=== PATIENT | male | born 1960 | race Two or more races ===

== ENCOUNTER 2022-11-23 00:09 | Inpatient (IN) | payer BC ==
[~2022-11-23] VITALS: Ht 172.7 cm; Wt 113.4 kg
--- NOTE | 2022-11-23 00:02 | NUR ---
Received patient from [facility] by florentino at this time. AAOx4. No signs of distress or c/o pain noted at this time. Is on 2L NC. Saturation 96-97%. Is SR on tele monitor. Right AC IV site is intact and patent. Admission process completed. Is on droplet isolation. Safety and comfort measures endorsed.
[2022-11-23] MEDS: BLOOD SUGAR DIAGNOSTIC 1 EACH STRIP VI SCH ×5 (01:00→20:46)
[2022-11-23] MEDS ORDERED: DEXTROSE 50% 50 ML DISP.SYRIN IV PRN (01:00)
[2022-11-23 01:20] VITALS: BP 124/83
[2022-11-23] MEDS ORDERED: ONDANSETRON 4 MG/2 ML VIAL IV PRN (01:45)
[2022-11-23] MEDS ORDERED: AZITHROMYCIN 500MG/ D5W 250ML IVPB **ER PYXIS ONLY IV ONE (03:28)
[2022-11-23] MEDS ORDERED: AZITHROMYCIN IV 500 MG in IV DEXTROSE 5% 250 ML IV SCH (03:44)
[2022-11-23] MEDS ORDERED: CEFTRIAXONE 1 G VIAL IM SCH ×2 (03:46→21:00)
--- NOTE | 2022-11-23 03:46 | NUR ---
Rocephin dose for this time was not administered because it was already administered adequately before patient was admitted to unit. Dr. Reece was contacted and is aware. Charge nurse, JULIANN Leon is also aware.
[2022-11-23] MEDS: INSULIN REGULAR, HUMAN 300 UNITS/3 ML VIAL SQ PRN ×2 (03:50→20:47)
[2022-11-23] MEDS: ACETAMINOPHEN 325 MG TABLET PO PRN ×3 (03:57→20:38)
[2022-11-23 04:20] VITALS: BP 156/83
[2022-11-23] MEDS: IV NS 1000 ML 1,000 ML IV PRN (05:29)
[2022-11-23 07:49] LABS: HEMATOCRIT 38.8 % (36.7-47.1); MEAN CORPUSCULAR HEMOGLOBIN 29.9 uug (23.8-33.4); MEAN CORPUSCULAR VOLUME 90.1 fL (73.0-96.2); PLATELET COUNT (AUTO) 176 K/uL (152-348)
[2022-11-23] MEDS: INSULIN REGULAR, HUMAN 300 UNIT/3 ML VIAL SQ PRN ×3 (08:19→16:32)
[2022-11-23 08:20] LABS: CREATININE 0.9 mg/dL (0.6-1.3); MAGNESIUM 2.1 mg/dL (1.8-2.4); PHOSPHOROUS 2.5 mg/dL (2.5-4.9); POTASSIUM 3.8 mmol/L (3.5-5.1)
[2022-11-23] MEDS: DOCUSATE SODIUM 100 MG CAPSULE PO SCH ×2 (08:28→20:38)
[2022-11-23] MEDS ORDERED: OSELTAMIVIR PHOSPHATE 75 MG CAPSULE PO ONE (09:00)
[2022-11-23 09:33] LABS: *BLOOD, URINE 1+ (NEGATIVE); *CLARITY,URINE CLEAR (CLEAR); *COLOR,URINE YELLOW (YELLOW); *KETONES,URINE 1+ (NEGATIVE); LEUKOCYTE ESTERASE ,URINE NEGATIVE (NEGATIVE); NITRITE, URINE NEGATIVE (NEGATIVE); UGLUCOSE NEGATIVE (NEGATIVE)
[2022-11-23 09:41] LABS: *BILIRUBIN,URIN 1+ (NEGATIVE)
[2022-11-23 11:44] VITALS: BP 140/84
[2022-11-23] MEDS: CEFTRIAXONE 1 G in IV DEXTROSE 5% 50 ML IV SCH (11:45)
--- NOTE | 2022-11-23 13:00 | NUR ---
Pt AAOX4. Temp. 100.5 Tylenol 650 mg given. No s/s of SOB or any resp distress. Rocephin 1g in D5 given. Pt. tolerated well. No s/s of adverse reaction. Will continue to monitor.
[2022-11-23 13:27] LABS: WBC,URINE NONE SEEN /HPF (0-3)
[2022-11-23 13:28] LABS: BACTERIA,URINE FEW /HPF (NONE SEEN); SQUAMOUS EPITHELIAL CELL,UR FEW /HPF (NONE SEEN)
[2022-11-23] MEDS ORDERED: HYDR-501 PO (15:09)
--- NOTE | 2022-11-23 15:10 | NUR ---
Spoke with pt. with home meds. He cannot remember home meds, he instead gave the name of his pharmacy. Called [facility] pharmacy and spoke to Laura and she stated that pt. only took Hydroxyzine according to their record. Medication entered in the [facility] and Dr. Garcia was here and aware.
[2022-11-23] MEDS: HYDROCODONE/APAP 5-325MG TABLET PO PRN (16:40)
[2022-11-23 16:47] VITALS: BP 147/89
--- NOTE | 2022-11-23 18:26 | NUR ---
Pt. c/o of pain 8/10 right lower back. Wynona 3/325 mg given. Pt. tolerated well. Dr. Garcia saw the pt. and ordered chest x-ray, us guided thoracentesis and pulmonary consult. Pt. started Tamiflu 150 mg and tolerated well. Will continue to observe droplets precaution.
--- NOTE | 2022-11-23 19:30 | NUR ---
Received patient lying in bed. AAOx4. Mainly Portuguese speaking. In no acute distress. Noted with frequent cough. Isolation precaution observed. Sinus tachy on tele with HR of 105/min. IV site on right AC intact and patent. IVF infusing. Continue to monitor.
[2022-11-23 20:00] VITALS: BP 126/78
--- NOTE | 2022-11-23 20:00 | NUR ---
Patient with temp of 101.3 orally, cooling measure provided and will provide Tylenol 650mg PO. O2 at 2LPM via NC in place. O2 sat at 95%. Frequent coughing and productive. Informed RT and will give breathing treatment.
--- NOTE | 2022-11-23 20:25 | NUR ---
Telephone call from Dr Moralse and gave telephone order to start patient on Metoprolol 25mg PO BID and Lisinorpil 10 mg daily in AM. Give 1 dose of Lisinopril 10mg PO tonight. Order read back and verified.
[2022-11-23] MEDS: IPRATROPIUM BROMIDE 0.5 MG/2.5 ML NEBU NEB PRN (20:27)
[2022-11-23] MEDS: ALBUTEROL SULFATE 2.5 MG/3 ML NEBU NEB PRN (20:27)
[2022-11-23] MEDS: MELATONIN 3 MG TABLET PO SCH (20:39)
[2022-11-23] MEDS: OSELTAMIVIR PHOSPHATE 75 MG CAPSULE PO SCH (20:52)
[2022-11-23] MEDS ORDERED: CEFTRIAXONE 1 G in IV DEXTROSE 5% 50 ML IV SCH (21:00)
[2022-11-23] MEDS ORDERED: LISINOPRIL 10 MG TABLET PO ONE (21:00)
[2022-11-24 00:23] VITALS: BP 126/59
[2022-11-24] MEDS: HYDROCODONE/APAP 5-325MG TABLET PO PRN ×4 (00:24→22:07)
[2022-11-24] MEDS: AZITHROMYCIN IV 500 MG in IV DEXTROSE 5% 250 ML IV SCH (03:57)
[2022-11-24] MEDS: IV NS 1000 ML 1,000 ML IV PRN (03:57)
[2022-11-24 04:00] VITALS: BP 132/79
[2022-11-24] MEDS: BLOOD SUGAR DIAGNOSTIC 1 EACH STRIP VI SCH ×4 (06:41→21:00)
--- NOTE | 2022-11-24 06:53 | NUR ---
Patient slept intermittently throughout the night. No signs of distress noted at this time. Is on 2L NC. Is SR on tele monitor, HR 96. Addressed pain. No fever was noted through rest of shift. Antibiotics adequately infused. No signs of diabetic crisis. Is aware of US guided thoracentesis procedure for today.
[2022-11-24] MEDS: INSULIN REGULAR, HUMAN 300 UNIT/3 ML VIAL SQ PRN ×3 (08:20→16:28)
[2022-11-24] MEDS: DOCUSATE SODIUM 100 MG CAPSULE PO SCH ×2 (08:21→21:00)
[2022-11-24] MEDS: OSELTAMIVIR PHOSPHATE 75 MG CAPSULE PO SCH ×2 (08:21→21:00)
[2022-11-24] MEDS: LISINOPRIL 10 MG TABLET PO SCH (08:26)
[2022-11-24] MEDS: METOPROLOL TARTRATE 25 MG TABLET PO SCH ×2 (08:26→16:35)
--- NOTE | 2022-11-24 10:50 | NUR ---
PATIENT SEEN AND EXAMINED BY DR QUISPE WITH NEW ORDERS AND NOTED
[2022-11-24 12:00] VITALS: BP 143/68
[2022-11-24] MEDS: CEFTRIAXONE 1 G in IV DEXTROSE 5% 50 ML IV SCH (12:39)
--- NOTE | 2022-11-24 15:00 | NUR ---
[employer] HERE FOR THE THORACENTESIS AND STATED THAT THEY WILL NOT BE ABLE TO DO THE THORACENTESIS STATED THAT PATIENT WILL NEED CT GUIDED DR RODRÍGUEZ HERE AND AWARE SO THE PLAN IS THAT THE THORACENTESIS WILL BE DONE TOMORROW WITH THE CT GUIDED TECHNIQUE.
[2022-11-24 15:16] LABS: HEMATOCRIT 38.2 % (36.7-47.1); MEAN CORPUSCULAR HEMOGLOBIN 29.6 uug (23.8-33.4); MEAN CORPUSCULAR VOLUME 89.7 fL (73.0-96.2); PLATELET COUNT (AUTO) 189 K/uL (152-348)
[2022-11-24 15:25] LABS: POTASSIUM 3.9 mmol/L (3.5-5.1)
[2022-11-24 15:29] LABS: MAGNESIUM 2.3 mg/dL (1.8-2.4); PHOSPHOROUS 2.2 mg/dL (2.5-4.9)
--- NOTE | 2022-11-24 16:00 | NUR ---
WBC IS 31.6 DR BRIDGES NOTIFIED WITH NO NEW ORDERS AT THIS TIME.
[2022-11-24 16:40] VITALS: BP 172/78
--- NOTE | 2022-11-24 16:40 | NUR ---
PATIENT C/O OF GENERALISED PAIN ESPECIALLY HIS BACK MEDICATED WITH NORCO ORDERED.
--- NOTE | 2022-11-24 17:40 | NUR ---
BLOOD PRESSURE IS ELEVATED AT 172/83 DR EASTMAN HERE STATED WILL ORDER PRN DOSE.
[2022-11-24] MEDS ORDERED: ENALAPRILAT DIHYDRATE 1.25 MG/1 ML VIAL IV PRN (18:00)
[2022-11-24] MEDS ORDERED: hydrALAZINE HCL 20 MG/1 ML VIAL IV PRN ×2 (18:00→18:15)
[2022-11-24] MEDS ORDERED: hydrALAZINE HCL IV 20 MG in IV NORMAL SALINE 50 ML IV PRN (18:00)
[2022-11-24 18:26] VITALS: BP 139/76
--- NOTE | 2022-11-24 18:27 | NUR ---
BLOOD PRESSURE RECHECKED AT THIS TIME AND ITS 139/76 HR91 WILL CONTINUE TO OBSERVE.
[2022-11-24 20:00] VITALS: BP 118/65
[2022-11-24] MEDS: MELATONIN 3 MG TABLET PO SCH (21:00)
[2022-11-24] MEDS: INSULIN REGULAR, HUMAN 300 UNITS/3 ML VIAL SQ PRN (22:23)
[2022-11-24 23:26] LABS: BAND % (MANUAL) 2 % (0-10)
[2022-11-24 23:27] LABS: LYMPHOCYTES % (MANUAL) 5 % (20-40); MONOCYTES % (MANUAL) 3 % (2-10); NEUTROPHILS % (MANUAL) 90 % (42-75)
[2022-11-24] MEDS: ACETAMINOPHEN 325 MG TABLET PO PRN (23:42)
[2022-11-25] VITALS: BP 144/78
[2022-11-25 04:00] VITALS: BP 122/68
[2022-11-25] MEDS: AZITHROMYCIN IV 500 MG in IV DEXTROSE 5% 250 ML IV SCH (04:34)
--- NOTE | 2022-11-25 07:00 | NUR ---
SHIFT NOTE: PT HAD TEMP AT START OF SHIFT GAVE TYLENOL 650MG AND HS BLOOD SUGAR IS 179 GAVE 3 UNITS OF REGULAR. PT AM BLOOD SUGAR 182 WILL ENDORSE TO AM NURSE. PT ASSESSED HAS CONTINUAL COUGH WITH GREEN MUCUS NO SIGNS DISTRESS NOTED AND WHEEZING FROM LUNGS. PT MONITORED Q2H AND ON DROPLET PRECAUTION FOR RSV. WILL CONTINUE TO MONITOR FOR SAFETY AND OTHER NEEDS PATIENT MAY HAVE.
[2022-11-25 07:34] LABS: HEMATOCRIT 37.4 % (36.7-47.1); MEAN CORPUSCULAR VOLUME 89.9 fL (73.0-96.2); PLATELET COUNT (AUTO) 183 K/uL (152-348)
[2022-11-25] MEDS: BLOOD SUGAR DIAGNOSTIC 1 EACH STRIP VI SCH ×4 (07:51→21:08)
[2022-11-25 07:54] LABS: CREATININE 0.8 mg/dL (0.6-1.3); MAGNESIUM 2.2 mg/dL (1.8-2.4); PHOSPHOROUS 2.2 mg/dL (2.5-4.9); POTASSIUM 3.6 mmol/L (3.5-5.1)
[2022-11-25] MEDS: ALBUTEROL SULFATE 2.5 MG/3 ML NEBU NEB PRN ×2 (08:00→20:10)
[2022-11-25] MEDS: IPRATROPIUM BROMIDE 0.5 MG/2.5 ML NEBU NEB PRN ×2 (08:00→20:10)
[2022-11-25] MEDS: INSULIN REGULAR, HUMAN 300 UNIT/3 ML VIAL SQ PRN ×4 (08:20→21:37)
[2022-11-25] MEDS: DOCUSATE SODIUM 100 MG CAPSULE PO SCH ×2 (08:32→21:12)
[2022-11-25] MEDS: OSELTAMIVIR PHOSPHATE 75 MG CAPSULE PO SCH ×2 (08:32→21:13)
[2022-11-25] MEDS: LISINOPRIL 10 MG TABLET PO SCH (08:40)
[2022-11-25] MEDS: METOPROLOL TARTRATE 25 MG TABLET PO SCH ×4 (08:54→17:00)
[2022-11-25] MEDS: HYDROCODONE/APAP 5-325MG TABLET PO PRN (09:06)
[2022-11-25 12:00] VITALS: BP 121/70
[2022-11-25 15:40] VITALS: BP 122/67
[2022-11-25] MEDS ORDERED: NEUTRA PHOS PACKET PO ONE (17:00)
[2022-11-25] MEDS: CEFTRIAXONE 2 G in IV DEXTROSE 5% 100 ML IV SCH (17:34)
--- NOTE | 2022-11-25 19:35 | NUR ---
Received Pt from day shift. Pt is A&Ox4 but only speaks Slovak. Pt is cooperative. Pt on 2L of O2 NC. SR on tele. Safety measures in place. Will continue to monitor.
[2022-11-25 20:00] VITALS: BP 108/55
[2022-11-25] MEDS: MELATONIN 3 MG TABLET PO SCH (21:13)
[2022-11-26] VITALS: BP 135/72
[2022-11-26] MEDS: AZITHROMYCIN IV 500 MG in IV DEXTROSE 5% 250 ML IV SCH (03:57)
[2022-11-26 04:00] VITALS: BP 128/57
--- NOTE | 2022-11-26 06:54 | NUR ---
End of Shift Note: Pt is A&Ox4 and is cooperative. Only speaks [place] Korean. Pt is able to ambulate. SR on tele. 2L O2 via NC. Pt declines fluids except for antibiotics. Safety measures in place. Will continue to monitor.
[2022-11-26] MEDS: BLOOD SUGAR DIAGNOSTIC 1 EACH STRIP VI SCH ×4 (07:01→21:00)
[2022-11-26 07:06] LABS: HEMATOCRIT 36.7 % (36.7-47.1); MEAN CORPUSCULAR HEMOGLOBIN 29.4 uug (23.8-33.4); MEAN CORPUSCULAR VOLUME 90.1 fL (73.0-96.2); PLATELET COUNT (AUTO) 191 K/uL (152-348)
[2022-11-26 07:25] LABS: CREATININE 0.9 mg/dL (0.6-1.3); MAGNESIUM 2.5 mg/dL (1.8-2.4); PHOSPHOROUS 2.7 mg/dL (2.5-4.9); POTASSIUM 3.7 mmol/L (3.5-5.1)
[2022-11-26] MEDS: DOCUSATE SODIUM 100 MG CAPSULE PO SCH ×2 (08:33→21:55)
[2022-11-26] MEDS: OSELTAMIVIR PHOSPHATE 75 MG CAPSULE PO SCH (08:34)
[2022-11-26] MEDS: LISINOPRIL 10 MG TABLET PO SCH (08:40)
[2022-11-26] MEDS: INSULIN REGULAR, HUMAN 300 UNIT/3 ML VIAL SQ PRN ×4 (08:41→22:09)
[2022-11-26] MEDS: METOPROLOL TARTRATE 25 MG TABLET PO SCH ×2 (08:41→17:06)
[2022-11-26 11:57] VITALS: BP 125/69
[2022-11-26 16:35] VITALS: BP 119/55
[2022-11-26] MEDS: CEFTRIAXONE 2 G in IV DEXTROSE 5% 100 ML IV SCH (16:42)
[2022-11-26 20:00] VITALS: BP 140/69
[2022-11-26] MEDS: MELATONIN 3 MG TABLET PO SCH (21:56)
[2022-11-26] MEDS: HYDROCODONE/APAP 5-325MG TABLET PO PRN (22:15)
[2022-11-27] VITALS: BP 140/70
[2022-11-27 04:00] VITALS: BP 140/70
[2022-11-27 06:47] LABS: HEMATOCRIT 39.6 % (36.7-47.1); MEAN CORPUSCULAR HEMOGLOBIN 29.8 uug (23.8-33.4); MEAN CORPUSCULAR VOLUME 88.7 fL (73.0-96.2); PLATELET COUNT (AUTO) 229 K/uL (152-348)
[2022-11-27 07:00] LABS: CREATININE 0.8 mg/dL (0.6-1.3); MAGNESIUM 2.3 mg/dL (1.8-2.4); PHOSPHOROUS 2.9 mg/dL (2.5-4.9); POTASSIUM 3.5 mmol/L (3.5-5.1)
[2022-11-27] MEDS: AZITHROMYCIN IV 500 MG in IV DEXTROSE 5% 250 ML IV SCH (07:04)
[2022-11-27] MEDS: BLOOD SUGAR DIAGNOSTIC 1 EACH STRIP VI SCH ×4 (07:05→20:27)
[2022-11-27] MEDS: METOPROLOL TARTRATE 25 MG TABLET PO SCH ×2 (09:00→16:54)
[2022-11-27] MEDS: LISINOPRIL 10 MG TABLET PO SCH (09:00)
[2022-11-27 09:47] VITALS: BP 154/53
[2022-11-27] MEDS: HYDROCODONE/APAP 5-325MG TABLET PO PRN ×2 (09:51→16:53)
[2022-11-27 11:41] VITALS: BP 119/57
[2022-11-27] MEDS ORDERED: SWABABLE VALVE TRANSFER SET EA MC ONE (11:49)
[2022-11-27] MEDS ORDERED: IOHEXOL 300MG/ML 100 ML INFUS..BTL ONE (11:49)
[2022-11-27] MEDS ORDERED: IV NORMAL SALINE 250 ML IV ONE (11:49)
[2022-11-27] MEDS: DOCUSATE SODIUM 100 MG CAPSULE PO SCH ×2 (14:16→20:27)
[2022-11-27] MEDS: INSULIN REGULAR, HUMAN 300 UNIT/3 ML VIAL SQ PRN ×2 (14:20→17:18)
[2022-11-27 15:52] VITALS: BP 115/61
[2022-11-27] MEDS: CEFTRIAXONE 2 G in IV DEXTROSE 5% 100 ML IV SCH (16:54)
--- NOTE | 2022-11-27 19:30 | NUR ---
Received patient laying in bed. No c/o of pain and signs of distress at this time. On 2L NC, saturation 97%. Chest tube drainage bag clean and intact. Is SR on tele monitor, HR 77. FIDE midline is intact and patent. IV antibiotics running at this time. Safety and comfort measures enforced.
[2022-11-27] MEDS: MELATONIN 3 MG TABLET PO SCH (20:17)
[2022-11-27] MEDS: ACETAMINOPHEN 325 MG TABLET PO PRN (20:20)
[2022-11-27 20:21] VITALS: BP 111/69
--- NOTE | 2022-11-27 20:27 | NUR ---
Patient refused Colace medication. Last BM noted was on the 11/26/22. Patient received IV antibiotics infused adequately. Pain addressed at this time. Other concerns addressed and patient verbally understands.
[2022-11-27] MEDS: INSULIN REGULAR, HUMAN 300 UNITS/3 ML VIAL SQ PRN (20:36)
[2022-11-28 00:13] VITALS: BP 135/66
[2022-11-28] MEDS: HYDROCODONE/APAP 5-325MG TABLET PO PRN ×3 (00:14→23:20)
[2022-11-28 04:54] VITALS: BP 109/63
--- NOTE | 2022-11-28 06:57 | NUR ---
Patient slept comfortably throughout the night. No signs of distress or c/o pain the rest of the night. Is on 2L NC. No signs of fever or diabetic crisis. Is SR on tele monitor, HR 70. Pigtail chest tube is clean and intact. Is dark yellow, brown with a little odor. Safety and comfort measures maintained.
[2022-11-28] MEDS: BLOOD SUGAR DIAGNOSTIC 1 EACH STRIP VI SCH ×4 (07:00→20:30)
[2022-11-28 08:00] VITALS: BP 135/64
[2022-11-28 08:18] LABS: CREATININE 0.7 mg/dL (0.6-1.3); MAGNESIUM 2.3 mg/dL (1.8-2.4); PHOSPHOROUS 3.2 mg/dL (2.5-4.9); POTASSIUM 3.7 mmol/L (3.5-5.1)
[2022-11-28 08:44] LABS: HEMATOCRIT 37.4 % (36.7-47.1); MEAN CORPUSCULAR HEMOGLOBIN 29.7 uug (23.8-33.4); MEAN CORPUSCULAR VOLUME 89.7 fL (73.0-96.2); PLATELET COUNT (AUTO) 228 K/uL (152-348)
[2022-11-28] MEDS: LISINOPRIL 10 MG TABLET PO SCH (08:51)
[2022-11-28] MEDS: ACETAMINOPHEN 325 MG TABLET PO PRN ×2 (08:51→20:15)
[2022-11-28] MEDS: DOCUSATE SODIUM 100 MG CAPSULE PO SCH ×2 (08:52→20:29)
[2022-11-28] MEDS: METOPROLOL TARTRATE 25 MG TABLET PO SCH ×2 (08:52→17:05)
[2022-11-28] MEDS: INSULIN REGULAR, HUMAN 300 UNIT/3 ML VIAL SQ PRN (12:17)
[2022-11-28 12:23] VITALS: BP 127/67
[2022-11-28 16:44] VITALS: BP 107/55
[2022-11-28] MEDS: CEFTRIAXONE 2 G in IV DEXTROSE 5% 100 ML IV SCH (17:04)
[2022-11-28 20:00] VITALS: BP 121/65
[2022-11-28] MEDS: MELATONIN 3 MG TABLET PO SCH (20:15)
[2022-11-28] MEDS: INSULIN REGULAR, HUMAN 300 UNITS/3 ML VIAL SQ PRN (20:45)
--- NOTE | 2022-11-28 23:15 | NUR ---
DC'd FIDE midline d/t it being pulled out. Catheter gauge was intact, patient tolerated removal well. Is in no distress at this time.
[2022-11-29] VITALS: BP 131/64
[2022-11-29 04:00] VITALS: BP 138/59
[2022-11-29] MEDS: ACETAMINOPHEN 325 MG TABLET PO PRN ×2 (04:18→17:49)
--- NOTE | 2022-11-29 05:38 | NUR ---
Patient is SR on tele monitor, HR 68
--- NOTE | 2022-11-29 06:55 | NUR ---
Patient slept intermittently throughout the night. Has a Left FA 22g IV site, hep lock at this time. No c/o of severe pain or signs of distress noted at this time. Chest Xray done at this time. Pigtail chest tube dressing is dry, clean and intact. Is draining adequately. No signs of diabetic crisis noted at this time.
[2022-11-29] MEDS: BLOOD SUGAR DIAGNOSTIC 1 EACH STRIP VI SCH ×4 (07:15→21:42)
[2022-11-29 07:47] LABS: HEMATOCRIT 39.4 % (36.7-47.1); MEAN CORPUSCULAR HEMOGLOBIN 30.3 uug (23.8-33.4); MEAN CORPUSCULAR VOLUME 89.9 fL (73.0-96.2); PLATELET COUNT (AUTO) 236 K/uL (152-348)
[2022-11-29 08:00] LABS: CREATININE 0.8 mg/dL (0.6-1.3); POTASSIUM 3.6 mmol/L (3.5-5.1)
[2022-11-29] MEDS: INSULIN REGULAR, HUMAN 300 UNIT/3 ML VIAL SQ PRN ×5 (09:07→21:50)
[2022-11-29] MEDS: DOCUSATE SODIUM 100 MG CAPSULE PO SCH ×2 (09:08→21:33)
[2022-11-29] MEDS: METOPROLOL TARTRATE 25 MG TABLET PO SCH ×2 (09:11→17:36)
[2022-11-29] MEDS: LISINOPRIL 10 MG TABLET PO SCH (09:14)
[2022-11-29] MEDS: HYDROCODONE/APAP 5-325MG TABLET PO PRN ×2 (09:57→23:50)
[2022-11-29 11:37] VITALS: BP 135/48
[2022-11-29 16:39] VITALS: BP 131/56
[2022-11-29] MEDS: CEFTRIAXONE 2 G in IV DEXTROSE 5% 100 ML IV SCH (18:00)
--- NOTE | 2022-11-29 18:15 | NUR ---
Patient stable in bed. He is alert and oriented x4 and can make eye contact and his needs known. He is calm and relax currently. Patient complained of minor pain, Tylenol given for pain at 1800. Pigtial on chest tube draining well.
[2022-11-29 20:00] VITALS: BP 127/64
[2022-11-29] MEDS: MELATONIN 3 MG TABLET PO SCH (21:37)
--- NOTE | 2022-11-30 00:03 | NUR ---
PT C/O OF SORE THROAT AND COUGH CALL DR GANDHI NO RESPONSE WILL CONTINUE TO MONITOR FOR FALLS AND SAFETY. PT HS BLOOD SUGAR 131 NO COVERAGE REQUIRED AND NO SIGNS OF DIABETIC REACTION NOTED. WILL CONTINUE TO MONITOR FOR SAFETY.
[2022-11-30 04:00] VITALS: BP 135/64
[2022-11-30] MEDS: ACETAMINOPHEN 325 MG TABLET PO PRN (06:09)
[2022-11-30] MEDS: BLOOD SUGAR DIAGNOSTIC 1 EACH STRIP VI SCH ×4 (06:46→21:00)
[2022-11-30 07:37] LABS: HEMATOCRIT 38.5 % (36.7-47.1); MEAN CORPUSCULAR HEMOGLOBIN 29.5 uug (23.8-33.4); MEAN CORPUSCULAR VOLUME 89.9 fL (73.0-96.2); PLATELET COUNT (AUTO) 226 K/uL (152-348)
[2022-11-30 08:07] LABS: CREATININE 0.9 mg/dL (0.6-1.3); MAGNESIUM 2.1 mg/dL (1.8-2.4); POTASSIUM 4.3 mmol/L (3.5-5.1)
[2022-11-30] MEDS: DOCUSATE SODIUM 100 MG CAPSULE PO SCH ×2 (09:37→21:20)
[2022-11-30] MEDS: LISINOPRIL 10 MG TABLET PO SCH (09:38)
[2022-11-30] MEDS: METOPROLOL TARTRATE 25 MG TABLET PO SCH ×2 (09:38→18:10)
[2022-11-30] MEDS: INSULIN REGULAR, HUMAN 300 UNIT/3 ML VIAL SQ PRN ×3 (09:39→18:17)
[2022-11-30 11:09] VITALS: BP 111/35
--- NOTE | 2022-11-30 15:07 | NUR ---
PER BRITTANEY HE WILL DO THE ADMINISTRATION ON TPA THROUGH PIGTAIL JASMYN. PER PHARMACY WE DONT HAVE STOCK OF 10MG TPA, WILL REORDER FOR JASMYN.
--- NOTE | 2022-11-30 16:25 | NUR ---
PT SPIKE A FEVER 101.5 WILL GIVE PRN TYLENOL.
[2022-11-30] MEDS: HYDROCODONE/APAP 5-325MG TABLET PO PRN (16:32)
[2022-11-30 16:51] VITALS: BP 112/43
[2022-11-30 16:53] VITALS: BP 112/43
[2022-11-30] MEDS: IV NS 1000 ML 1,000 ML IV PRN (18:10)
[2022-11-30] MEDS: CEFTRIAXONE 2 G in IV DEXTROSE 5% 100 ML IV SCH (18:10)
[2022-11-30 20:00] VITALS: BP 114/50
[2022-11-30] MEDS: MELATONIN 3 MG TABLET PO SCH (21:22)
[2022-12-01] VITALS: BP 110/52
[2022-12-01] MEDS: INSULIN REGULAR, HUMAN 300 UNITS/3 ML VIAL SQ PRN (00:14)
[2022-12-01 04:00] VITALS: BP 127/59
[2022-12-01 07:39] LABS: HEMATOCRIT 37.6 % (36.7-47.1); MEAN CORPUSCULAR HEMOGLOBIN 30.1 uug (23.8-33.4); PLATELET COUNT (AUTO) 226 K/uL (152-348)
[2022-12-01] MEDS: BLOOD SUGAR DIAGNOSTIC 1 EACH STRIP VI SCH ×4 (07:48→20:49)
[2022-12-01 08:12] LABS: CREATININE 0.9 mg/dL (0.6-1.3); POTASSIUM 4.2 mmol/L (3.5-5.1)
[2022-12-01] MEDS ORDERED: BENZOCAINE/MENTH/CETYLPYRD LOZENGE MM PRN (08:30)
[2022-12-01] MEDS: DOCUSATE SODIUM 100 MG CAPSULE PO SCH ×2 (09:00→20:43)
[2022-12-01] MEDS ORDERED: NORMAL SALINE XX ONE (09:00)
[2022-12-01] MEDS ORDERED: ALTEPLASE XX ONE (09:00)
[2022-12-01] MEDS: METOPROLOL TARTRATE 25 MG TABLET PO SCH ×2 (09:26→18:06)
[2022-12-01] MEDS: LISINOPRIL 10 MG TABLET PO SCH (09:26)
--- NOTE | 2022-12-01 09:28 | NUR ---
dr wilder adminiter tPA 10mg via chest tube. pt tolerated well. drainage closed for 4 hrs.
[2022-12-01 11:47] VITALS: BP 108/51
[2022-12-01] MEDS: INSULIN REGULAR, HUMAN 300 UNIT/3 ML VIAL SQ PRN ×3 (13:13→21:02)
--- NOTE | 2022-12-01 13:30 | NUR ---
RESUME CHEST TUBE DRAIN. GREENISH COLOR WITH LITTLE BLOOD FLUID NOTED. MD IS NOTIFIED. NO NEW ORDER.
[2022-12-01] MEDS: HYDROCODONE/APAP 5-325MG TABLET PO PRN ×2 (14:39→20:39)
[2022-12-01 15:47] VITALS: BP 110/56
--- NOTE | 2022-12-01 16:16 | NUR ---
ALTEPLASE GIVEN AT 0930 ORDERED
[2022-12-01] MEDS: CEFTRIAXONE 2 G in IV DEXTROSE 5% 100 ML IV SCH (18:06)
--- NOTE | 2022-12-01 19:30 | NUR ---
Received Pt from Day shift. Pt is A&Ox4. IV site is patent & intact. 2 L O2 via NC. SR on tele. Aware of chest tube and drainage. Safety measures in place. Will continue to monitor
[2022-12-01] MEDS: ACETAMINOPHEN 325 MG TABLET PO PRN (19:51)
[2022-12-01 20:00] VITALS: BP 117/46
--- NOTE | 2022-12-01 20:00 | NUR ---
Pt's Temp. came up to 101.5 degrees. Pt stated he "feels good." Was informed that the elevation of temperature occurred earlier as well. Administered Tylenol. Will reassess. Will continue to monitor.
[2022-12-01] MEDS: MELATONIN 3 MG TABLET PO SCH (20:40)
--- NOTE | 2022-12-01 21:14 | NUR ---
Pt denied fluids. Safety measures in place. Will continue to monitor.
--- NOTE | 2022-12-01 22:01 | NUR ---
Reassessed Pt's temp.: currently 98.8 degrees. Safety measures in place. Will continue to monitor.
[2022-12-02] VITALS: BP 121/59
[2022-12-02 04:00] VITALS: BP 111/58
--- NOTE | 2022-12-02 06:35 | NUR ---
End of shift Note: Pt is A&Ox4. IV site is patent & intact. 2 L O2 via NC. Drained approximately 140 mL of fluid from drainage sack of chest tube. Color is red and opaque. No odor noted. Safety measures in place. Will continue to monitor
[2022-12-02 06:56] LABS: CREATININE 0.9 mg/dL (0.6-1.3); MAGNESIUM 2.2 mg/dL (1.8-2.4); PHOSPHOROUS 3.2 mg/dL (2.5-4.9); POTASSIUM 4.2 mmol/L (3.5-5.1)
[2022-12-02 07:06] LABS: MEAN CORPUSCULAR HEMOGLOBIN 29.7 uug (23.8-33.4); MEAN CORPUSCULAR VOLUME 89.4 fL (73.0-96.2); PLATELET COUNT (AUTO) 225 K/uL (152-348)
[2022-12-02] MEDS: BLOOD SUGAR DIAGNOSTIC 1 EACH STRIP VI SCH ×4 (07:43→21:46)
[2022-12-02] MEDS: DOCUSATE SODIUM 100 MG CAPSULE PO SCH ×2 (08:44→21:00)
[2022-12-02] MEDS: METOPROLOL TARTRATE 25 MG TABLET PO SCH ×2 (08:44→17:30)
[2022-12-02] MEDS: LISINOPRIL 10 MG TABLET PO SCH (08:44)
[2022-12-02] MEDS: INSULIN REGULAR, HUMAN 300 UNIT/3 ML VIAL SQ PRN ×4 (08:45→21:49)
[2022-12-02] MEDS: HYDROCODONE/APAP 5-325MG TABLET PO PRN (15:34)
[2022-12-02 15:50] VITALS: BP 113/53
[2022-12-02] MEDS: CEFTRIAXONE 2 G in IV DEXTROSE 5% 100 ML IV SCH (17:30)
--- NOTE | 2022-12-02 18:49 | NUR ---
NO ACUTE DISTRESS NOTED. S/P INTRAPLEURAL TPA ADMINISTRATION(12/01/22/). NO SOB NOTED. RIGHT SIDE CHEST PAIN COMPLAIN GAVE PRN NORCO. AFEBRILE ON SHIFT. PT IS AMBULATORY. PIGTAIL DRAIN INTACT AND DRAINING, 100CC BLOODY OPAQUE COLOR NOTED. CONT ABX TX AND DC IV NS PER MD. CALL LIGHT ON BEDSIDE; BED ALARM ON. WILL ENDORSED TO NOC SHIFT.
[2022-12-02 20:00] VITALS: BP 113/55
[2022-12-02] MEDS: MELATONIN 3 MG TABLET PO SCH (20:48)
[2022-12-02] MEDS: METRONIDAZOLE 500 MG TABLET PO SCH ×2 (21:47→23:15)
[2022-12-02] MEDS: ACETAMINOPHEN 325 MG TABLET PO PRN (23:15)
[2022-12-03] VITALS: BP 116/54
--- NOTE | 2022-12-03 01:00 | NUR ---
Titrated Pt's O2 from 2L to 1L via NC. Safety measures in place. Will continue to monitor.
[2022-12-03 04:00] VITALS: BP 118/66
[2022-12-03] MEDS: METRONIDAZOLE 500 MG TABLET PO SCH ×3 (06:18→18:07)
[2022-12-03 06:49] LABS: HEMATOCRIT 37.2 % (36.7-47.1); MEAN CORPUSCULAR HEMOGLOBIN 29.7 uug (23.8-33.4); MEAN CORPUSCULAR VOLUME 89.7 fL (73.0-96.2); PLATELET COUNT (AUTO) 235 K/uL (152-348)
[2022-12-03] MEDS: BLOOD SUGAR DIAGNOSTIC 1 EACH STRIP VI SCH ×4 (07:06→21:00)
[2022-12-03 07:42] LABS: CREATININE 0.8 mg/dL (0.6-1.3); MAGNESIUM 2.1 mg/dL (1.8-2.4); PHOSPHOROUS 3.5 mg/dL (2.5-4.9); POTASSIUM 4.3 mmol/L (3.5-5.1)
[2022-12-03] MEDS: DOCUSATE SODIUM 100 MG CAPSULE PO SCH ×2 (09:55→21:25)
[2022-12-03] MEDS: LISINOPRIL 10 MG TABLET PO SCH (09:55)
[2022-12-03] MEDS: METOPROLOL TARTRATE 25 MG TABLET PO SCH ×2 (10:01→18:07)
[2022-12-03 11:05] VITALS: BP 128/60
[2022-12-03] MEDS: INSULIN REGULAR, HUMAN 300 UNITS/3 ML VIAL SQ PRN (13:52)
[2022-12-03] MEDS: HYDROCODONE/APAP 5-325MG TABLET PO PRN ×2 (14:43→21:26)
[2022-12-03 15:48] VITALS: BP 111/36
[2022-12-03] MEDS: CEFTRIAXONE 2 G in IV DEXTROSE 5% 100 ML IV SCH (18:06)
[2022-12-03 20:00] VITALS: BP 109/45
[2022-12-03] MEDS: MELATONIN 3 MG TABLET PO SCH (21:26)
[2022-12-03] MEDS: INSULIN REGULAR, HUMAN 300 UNIT/3 ML VIAL SQ PRN (22:20)
[2022-12-04] MEDS: METRONIDAZOLE 500 MG TABLET PO SCH ×4 (00:11→17:10)
[2022-12-04 04:00] VITALS: BP 102/50
[2022-12-04] MEDS: HYDROCODONE/APAP 5-325MG TABLET PO PRN (05:45)
[2022-12-04] MEDS: BLOOD SUGAR DIAGNOSTIC 1 EACH STRIP VI SCH ×4 (07:51→21:13)
[2022-12-04] MEDS: DOCUSATE SODIUM 100 MG CAPSULE PO SCH ×3 (08:37→21:12)
[2022-12-04] MEDS: METOPROLOL TARTRATE 25 MG TABLET PO SCH ×2 (08:45→17:16)
[2022-12-04] MEDS: LISINOPRIL 10 MG TABLET PO SCH (08:45)
[2022-12-04 11:01] VITALS: BP 121/68
[2022-12-04 11:11] LABS: HEMATOCRIT 36.8 % (36.7-47.1); MEAN CORPUSCULAR HEMOGLOBIN 29.5 uug (23.8-33.4); MEAN CORPUSCULAR VOLUME 89.2 fL (73.0-96.2); PLATELET COUNT (AUTO) 215 K/uL (152-348)
[2022-12-04 11:19] LABS: MAGNESIUM 2.2 mg/dL (1.8-2.4); PHOSPHOROUS 3.5 mg/dL (2.5-4.9); POTASSIUM 4.2 mmol/L (3.5-5.1)
[2022-12-04] MEDS: INSULIN REGULAR, HUMAN 300 UNIT/3 ML VIAL SQ PRN ×2 (12:38→17:06)
[2022-12-04 15:05] VITALS: BP 114/57
[2022-12-04] MEDS: ACETAMINOPHEN 325 MG TABLET PO PRN (17:08)
[2022-12-04] MEDS: CEFTRIAXONE 2 G in IV DEXTROSE 5% 100 ML IV SCH (17:10)
[2022-12-04 20:28] VITALS: BP 94/51
[2022-12-04] MEDS: MELATONIN 3 MG TABLET PO SCH (21:12)
[2022-12-04] MEDS: INSULIN REGULAR, HUMAN 300 UNITS/3 ML VIAL SQ PRN (21:14)
[2022-12-04 23:49] VITALS: BP 123/71
[2022-12-05] MEDS: METRONIDAZOLE 500 MG TABLET PO SCH ×4 (00:37→17:11)
[2022-12-05] MEDS: HYDROCODONE/APAP 5-325MG TABLET PO PRN ×2 (02:24→23:01)
[2022-12-05 04:15] VITALS: BP 99/53
[2022-12-05] MEDS: BLOOD SUGAR DIAGNOSTIC 1 EACH STRIP VI SCH ×4 (06:37→21:00)
[2022-12-05 07:07] LABS: HEMATOCRIT 35.6 % (36.7-47.1); MEAN CORPUSCULAR HEMOGLOBIN 29.9 uug (23.8-33.4); MEAN CORPUSCULAR VOLUME 88.8 fL (73.0-96.2); PLATELET COUNT (AUTO) 212 K/uL (152-348)
[2022-12-05 07:40] LABS: CREATININE 0.8 mg/dL (0.6-1.3); MAGNESIUM 2.3 mg/dL (1.8-2.4); PHOSPHOROUS 3.5 mg/dL (2.5-4.9); POTASSIUM 4.1 mmol/L (3.5-5.1)
[2022-12-05] MEDS: DOCUSATE SODIUM 100 MG CAPSULE PO SCH ×2 (08:30→22:58)
[2022-12-05] MEDS: INSULIN REGULAR, HUMAN 300 UNIT/3 ML VIAL SQ PRN ×3 (08:30→15:40)
[2022-12-05 08:48] VITALS: BP 110/58
[2022-12-05] MEDS: LISINOPRIL 10 MG TABLET PO SCH (08:50)
[2022-12-05] MEDS: METOPROLOL TARTRATE 25 MG TABLET PO SCH ×2 (08:50→16:03)
[2022-12-05 11:38] VITALS: BP 136/61
[2022-12-05 15:22] VITALS: BP 132/62
[2022-12-05] MEDS: GLUCERNA SHAKE 237 ML CAN PO SCH (15:42)
[2022-12-05] MEDS: CEFTRIAXONE 2 G in IV DEXTROSE 5% 100 ML IV SCH (16:03)
[2022-12-05] MEDS: ACETAMINOPHEN 325 MG TABLET PO PRN (16:03)
[2022-12-05 20:00] VITALS: BP 140/80
[2022-12-05] MEDS: MELATONIN 3 MG TABLET PO SCH (21:00)
[2022-12-06] MEDS: METRONIDAZOLE 500 MG TABLET PO SCH ×4 (00:46→17:59)
[2022-12-06 04:32] VITALS: BP 136/73
[2022-12-06] MEDS: ACETAMINOPHEN 325 MG TABLET PO PRN ×3 (05:00→18:05)
[2022-12-06] MEDS: BLOOD SUGAR DIAGNOSTIC 1 EACH STRIP VI SCH ×4 (07:06→21:22)
[2022-12-06 07:27] LABS: HEMATOCRIT 36.2 % (36.7-47.1); MEAN CORPUSCULAR HEMOGLOBIN 29.4 uug (23.8-33.4); MEAN CORPUSCULAR VOLUME 88.3 fL (73.0-96.2); PLATELET COUNT (AUTO) 198 K/uL (152-348)
[2022-12-06 07:42] LABS: CREATININE 0.8 mg/dL (0.6-1.3); POTASSIUM 4.1 mmol/L (3.5-5.1)
[2022-12-06] MEDS: METOPROLOL TARTRATE 25 MG TABLET PO SCH ×2 (09:00→17:55)
[2022-12-06] MEDS: GLUCERNA SHAKE 237 ML CAN PO SCH ×2 (09:38→17:50)
[2022-12-06] MEDS: DOCUSATE SODIUM 100 MG CAPSULE PO SCH ×2 (09:39→21:10)
[2022-12-06] MEDS: LISINOPRIL 10 MG TABLET PO SCH (09:48)
[2022-12-06 11:53] VITALS: BP 131/74
[2022-12-06] MEDS: INSULIN REGULAR, HUMAN 300 UNIT/3 ML VIAL SQ PRN ×2 (13:03→18:18)
[2022-12-06 16:50] VITALS: BP 114/57
[2022-12-06] MEDS: HYDROCODONE/APAP 5-325MG TABLET PO PRN (18:04)
--- NOTE | 2022-12-06 18:05 | NUR ---
Pt requested Tylenol Refused at bedside Changed request to Narco
[2022-12-06 20:43] VITALS: BP 114/61
[2022-12-06] MEDS: MELATONIN 3 MG TABLET PO SCH (21:10)
[2022-12-06] MEDS: INSULIN REGULAR, HUMAN 300 UNITS/3 ML VIAL SQ PRN (21:26)
[2022-12-07 00:25] VITALS: BP 117/55
[2022-12-07] MEDS: METRONIDAZOLE 500 MG TABLET PO SCH ×4 (01:07→17:17)
[2022-12-07] MEDS: HYDROCODONE/APAP 5-325MG TABLET PO PRN (04:09)
[2022-12-07 04:20] VITALS: BP 118/67
[2022-12-07] MEDS: BLOOD SUGAR DIAGNOSTIC 1 EACH STRIP VI SCH ×4 (06:40→20:34)
[2022-12-07 08:19] LABS: HEMATOCRIT 35.7 % (36.7-47.1); MEAN CORPUSCULAR HEMOGLOBIN 30.1 uug (23.8-33.4); MEAN CORPUSCULAR VOLUME 89.3 fL (73.0-96.2); PLATELET COUNT (AUTO) 212 K/uL (152-348)
[2022-12-07 08:38] LABS: CREATININE 0.9 mg/dL (0.6-1.3); PHOSPHOROUS 3.7 mg/dL (2.5-4.9); POTASSIUM 3.9 mmol/L (3.5-5.1)
[2022-12-07] MEDS: INSULIN REGULAR, HUMAN 300 UNIT/3 ML VIAL SQ PRN ×3 (08:44→17:16)
[2022-12-07] MEDS: LISINOPRIL 10 MG TABLET PO SCH (09:00)
[2022-12-07] MEDS: METOPROLOL TARTRATE 25 MG TABLET PO SCH ×2 (09:00→17:00)
[2022-12-07] MEDS: DOCUSATE SODIUM 100 MG CAPSULE PO SCH ×2 (09:00→20:34)
[2022-12-07 09:35] VITALS: BP 110/72
[2022-12-07] MEDS: GLUCERNA SHAKE 237 ML CAN PO SCH ×2 (09:35→17:17)
[2022-12-07 12:01] VITALS: BP 127/71
[2022-12-07 15:11] VITALS: BP 122/67
--- NOTE | 2022-12-07 17:46 | NUR ---
no acute distress noted, no events noted during day shift, ambulatory. pigtail is intact, drained 20ml serosanguineous during day shift.
[2022-12-07] MEDS ORDERED: Blood Sugar Diagnostic VI (18:44)
[2022-12-07] MEDS ORDERED: ALBU2.5V7 NEB (18:44)
[2022-12-07] MEDS ORDERED: METR500T PO ×2 (18:44→19:41)
[2022-12-07] MEDS ORDERED: ONDA4VIA23 PO (18:44)
[2022-12-07] MEDS ORDERED: METO25TA6 PO (18:44)
[2022-12-07] MEDS ORDERED: DEXT50DI8 IV (18:44)
[2022-12-07] MEDS ORDERED: DOCU-141 PO (18:44)
[2022-12-07] MEDS ORDERED: ACET325T53 PO (18:44)
[2022-12-07] MEDS ORDERED: NUT.237L36 PO (18:44)
[2022-12-07] MEDS ORDERED: INSU100V28 SQ (18:44)
[2022-12-07] MEDS ORDERED: MELA3TAB41 PO (18:44)
[2022-12-07] MEDS ORDERED: Benzocaine/Menth/Cetylpyrd Cl MM (18:44)
[2022-12-07] MEDS ORDERED: IPRA0.2S6 NEB (18:44)
[2022-12-07] MEDS ORDERED: HYDR20VI4 IV (18:44)
[2022-12-07] MEDS ORDERED: HYDR-3972 PO (18:44)
[2022-12-07] MEDS ORDERED: LISI10TA29 PO (18:44)
[2022-12-07] MEDS ORDERED: ENAL1.2515 IV (18:44)
[2022-12-07] MEDS: MELATONIN 3 MG TABLET PO SCH (20:35)
[2022-12-07] MEDS: INSULIN REGULAR, HUMAN 300 UNITS/3 ML VIAL SQ PRN (20:42)
[2022-12-07 21:20] VITALS: BP 107/49
[2022-12-08] MEDS: METRONIDAZOLE 500 MG TABLET PO SCH ×5 (01:07→23:25)
[2022-12-08] MEDS: HYDROCODONE/APAP 5-325MG TABLET PO PRN ×2 (01:14→23:25)
[2022-12-08 02:08] VITALS: BP 114/70
[2022-12-08] MEDS: BLOOD SUGAR DIAGNOSTIC 1 EACH STRIP VI SCH ×4 (05:46→21:03)
[2022-12-08 06:36] VITALS: BP 125/69
--- NOTE | 2022-12-08 07:00 | NUR ---
patient alert oriented, no sob no chest pain, complain of 8/10 back pain, given Narco with help after one one, sinus rhythm on tele, voiding well, hard had no drainage noted on pigtail at this time, call light within reach. cont to monitor.
[2022-12-08 08:31] VITALS: BP 129/72
[2022-12-08 08:49] LABS: HEMATOCRIT 35.3 % (36.7-47.1); MEAN CORPUSCULAR HEMOGLOBIN 29.3 uug (23.8-33.4); MEAN CORPUSCULAR VOLUME 88.1 fL (73.0-96.2); PLATELET COUNT (AUTO) 214 K/uL (152-348)
[2022-12-08 08:55] LABS: CREATININE 0.8 mg/dL (0.6-1.3); POTASSIUM 3.9 mmol/L (3.5-5.1)
[2022-12-08] MEDS: METOPROLOL TARTRATE 25 MG TABLET PO SCH ×2 (09:09→17:32)
[2022-12-08] MEDS: DOCUSATE SODIUM 100 MG CAPSULE PO SCH ×2 (09:09→21:00)
[2022-12-08] MEDS: LISINOPRIL 10 MG TABLET PO SCH (09:10)
[2022-12-08] MEDS: GLUCERNA SHAKE 237 ML CAN PO SCH ×2 (09:10→17:42)
[2022-12-08] MEDS: INSULIN REGULAR, HUMAN 300 UNIT/3 ML VIAL SQ PRN ×2 (12:11→17:33)
[2022-12-08 12:15] VITALS: BP 112/64
[2022-12-08 16:43] VITALS: BP 130/82
[2022-12-08 20:00] VITALS: BP 103/49
--- NOTE | 2022-12-08 20:30 | NUR ---
received patient in bed, alert oriented, no sob no chest pain, no complain of pain, sinus rhythm on tele cont to monitor.
[2022-12-08] MEDS: MELATONIN 3 MG TABLET PO SCH (21:07)
[2022-12-08] MEDS: INSULIN REGULAR, HUMAN 300 UNITS/3 ML VIAL SQ PRN (21:35)
[2022-12-09] VITALS: BP 112/64
[2022-12-09] MEDS: METRONIDAZOLE 500 MG TABLET PO SCH ×4 (05:20→23:14)
[2022-12-09] MEDS: BLOOD SUGAR DIAGNOSTIC 1 EACH STRIP VI SCH ×4 (05:24→20:46)
[2022-12-09 06:01] VITALS: BP 105/55
[2022-12-09 07:40] LABS: CREATININE 0.8 mg/dL (0.6-1.3); POTASSIUM 3.9 mmol/L (3.5-5.1)
[2022-12-09 08:14] LABS: HEMATOCRIT 35.6 % (36.7-47.1); MEAN CORPUSCULAR HEMOGLOBIN 29.3 uug (23.8-33.4); MEAN CORPUSCULAR VOLUME 88.6 fL (73.0-96.2); PLATELET COUNT (AUTO) 206 K/uL (152-348)
[2022-12-09 08:35] VITALS: BP 120/78
[2022-12-09] MEDS: DOCUSATE SODIUM 100 MG CAPSULE PO SCH ×2 (08:52→20:45)
[2022-12-09] MEDS: LISINOPRIL 10 MG TABLET PO SCH (08:52)
[2022-12-09] MEDS: METOPROLOL TARTRATE 25 MG TABLET PO SCH ×2 (08:52→17:52)
[2022-12-09] MEDS: GLUCERNA SHAKE 237 ML CAN PO SCH ×2 (08:53→17:53)
[2022-12-09] MEDS: FLUCONAZOLE 200 MG TABLET PO SCH (12:50)
[2022-12-09] MEDS: INSULIN REGULAR, HUMAN 300 UNIT/3 ML VIAL SQ PRN (12:53)
[2022-12-09 17:06] VITALS: BP 123/64
--- NOTE | 2022-12-09 18:03 | NUR ---
shift note; no acute changes today. ambulatory and selfcare. R lateral back pigtail drain patent and intact, 5cc drained. vitals wnl. [facility] for [facility]po. call light within reach. pt need mets. bed [id number]. will endorsed to noc shift
[2022-12-09 20:00] VITALS: BP 118/52
[2022-12-09] MEDS: MELATONIN 3 MG TABLET PO SCH (20:45)
[2022-12-09] MEDS: INSULIN REGULAR, HUMAN 300 UNITS/3 ML VIAL SQ PRN (20:50)
[2022-12-09] MEDS ORDERED: FLUC200T8 PO (21:44)
[2022-12-09] MEDS: HYDROCODONE/APAP 5-325MG TABLET PO PRN (23:15)
[2022-12-10] MEDS: METRONIDAZOLE 500 MG TABLET PO SCH (05:57)
[2022-12-10] MEDS: BLOOD SUGAR DIAGNOSTIC 1 EACH STRIP VI SCH (05:57)
[2022-12-10 07:50] LABS: HEMATOCRIT 35.3 % (36.7-47.1); MEAN CORPUSCULAR HEMOGLOBIN 29.4 uug (23.8-33.4); MEAN CORPUSCULAR VOLUME 87.9 fL (73.0-96.2); PLATELET COUNT (AUTO) 208 K/uL (152-348)
[2022-12-10 07:59] LABS: CREATININE 0.8 mg/dL (0.6-1.3); MAGNESIUM 1.9 mg/dL (1.8-2.4); PHOSPHOROUS 4.2 mg/dL (2.5-4.9); POTASSIUM 3.8 mmol/L (3.5-5.1)
[2022-12-10 08:51] VITALS: BP 129/62
[2022-12-10 09:16] VITALS: BP 129/62
[2022-12-10] MEDS: FLUCONAZOLE 200 MG TABLET PO SCH (09:16)
[2022-12-10] MEDS: LISINOPRIL 10 MG TABLET PO SCH (09:16)
[2022-12-10] MEDS: METOPROLOL TARTRATE 25 MG TABLET PO SCH (09:16)
[2022-12-10] MEDS: DOCUSATE SODIUM 100 MG CAPSULE PO SCH (09:16)
[2022-12-10] MEDS: GLUCERNA SHAKE 237 ML CAN PO SCH (09:17)
[2022-12-10] MEDS ORDERED: NUTRISOURCE FIBER 4 GM PACKET PO SCH (12:00)
--- NOTE | 2022-12-10 13:26 | NUR ---
Pt is A/o x4, is getting picked up by ambulance, he is stable, not complaining of pain or distress.
== END 2022-12-10 13:15 | DRG 974 ==
LOC: MEDSURG3 00:09 → TELE3 01:08 → MEDSURG3 12-05 20:50 → TELE3 12-05 22:00 → TELE 12-07 07:16 → MED 12-10 11:10
PROVIDERS: ADMIT Internal Medicine; ATTEND Internal Medicine
PROC: 0W993ZZ Drainage of Right Pleural Cavity, Percutaneous Approach (ICD-10-PCS; principal; 2022-11-25)
PROC: 05H533Z Insertion of Infusion Device into Right Subclavian Vein, Percutaneous Approach (ICD-10-PCS; 2022-11-25)
PROC: B546ZZA Ultrasonography of Right Subclavian Vein, Guidance (ICD-10-PCS; 2022-11-25)
PROC: 0W9930Z Drainage of Right Pleural Cavity with Drainage Device, Percutaneous Approach (ICD-10-PCS; 2022-11-27)
PROC: 3E0L3GC Introduction of Other Therapeutic Substance into Pleural Cavity, Percutaneous Approach (ICD-10-PCS; 2022-12-01)
DX: A41.9 Sepsis, unspecified organism (principal); J12.1 Respiratory syncytial virus pneumonia; B20 Human immunodeficiency virus [HIV] disease; J86.9 Pyothorax without fistula; J91.8 Pleural effusion in other conditions classified elsewhere; E87.1 Hypo-osmolality and hyponatremia; B38.2 Pulmonary coccidioidomycosis, unspecified; E11.65 Type 2 diabetes mellitus with hyperglycemia; D64.9 Anemia, unspecified; Z86.16 Personal history of COVID-19; Z87.891 Personal history of nicotine dependence; K21.9 Gastro-esophageal reflux disease without esophagitis; I10 Essential (primary) hypertension; E66.9 Obesity, unspecified; Z68.38 Body mass index [BMI] 38.0-38.9, adult; G47.30 Sleep apnea, unspecified; R59.0 Localized enlarged lymph nodes
CPT/HCPCS: 36415; 70030-TC; 71045; 71250; 71260; 82378; 83605; 83615; 83735; 83986; 84100; 84155; 85025; 85730; 86140; 86480; 87040; 87400; 93005; 94640; A4663; G0378; J0456; J0696; J1815; J2997; J3590; J7040; J7050; Q9967